=== PATIENT | female | born 1970 | race Caucasian/White ===

== ENCOUNTER 2019-09-14 14:26 | Emergency (ER) | payer OTHER ==
[~2019-09-14] VITALS: Ht 172.7 cm; Wt 90.9 kg
[2019-09-14 14:27] VITALS: BP 163/78
[2019-09-14] MEDS ORDERED: TOPA50TA8 PO (14:46)
[2019-09-14] MEDS ORDERED: ZOMI5TAB2 PO (14:46)
[2019-09-14] MEDS ORDERED: ESTR0.5T3 PO (14:46)
[2019-09-14] MEDS ORDERED: KETOROLAC 30 MG/ML 1ML VIAL IM ONE (15:30)
--- NOTE | 2019-09-14 15:47 | REP ---
Clinical: Trauma. Fall. Technique: Frontal view of the pelvis with neutral and frog lateral views of the right hip. Findings: No acute fracture dislocation. Skeletal structures, joint spaces, and surrounding soft tissues are essentially age-appropriate. No overt arthritic findings. Impression: No acute fracture or dislocation. Electronically Signed by Reji Howard MD 09/14/2019 03:39 P
== END 2019-09-14 16:15 | disposition home or self-care (01) ==
LOC: M ED 14:26
DX: S70.11XA Contusion of right thigh, initial encounter (principal); W18.09XA Striking against other object with subsequent fall, initial encounter; Y92.512 Supermarket, store or market as the place of occurrence of the external cause; Y99.8 Other external cause status; Z88.0 Allergy status to penicillin; Z79.899 Other long term (current) drug therapy; G43.909 Migraine, unspecified, not intractable, without status migrainosus
CPT/HCPCS: 73502; 99283; J1885

== ENCOUNTER → 2024-07-24 | Outpatient (REF) | payer BC ==
[~2024-07-24] MED LIST: ESTR0.5T3 PO; TOPA50TA8 PO; ZOMI5TAB2 PO
== END ==
LOC: M LAB REF 15:24
PROVIDERS: ATTEND Internal Medicine Endocrinology, Diabetes & Metabolism
DX: E04.1 Nontoxic single thyroid nodule (principal)

== ENCOUNTER → 2025-01-27 | Outpatient (CLI) | payer BC, SELFPAY | LOC: M PLAIMG 12:13 | PROVIDERS: ATTEND Physician Assistant | DX: J32.8 Other chronic sinusitis (principal); J34.2 Deviated nasal septum ==